=== PATIENT | male | born 1980 | race Caucasian/White ===

== ENCOUNTER 2017-04-11 08:21 | Emergency (ER) | payer OTHER ==
[2017-04-11 08:41] LABS: BASOPHIL COUNT 0.1 K/uL (0-0.1); EOSINOPHIL (%) 2.1 % (0-5); EOSINOPHIL COUNT 0.2 K/uL (0-0.3); HEMATOCRIT 51.6 % (38.0-50.0); IMMATURE GRANULOCYTE (%) 0.2 % (0.0-0.7); INSTRUMENT ABS NEUTROPHIL CT 6.2 K/uL; MCH 32.1 PG (29.0-34.0); MCHC 34.7 G/DL (30.0-36.0); MCV 92.6 FL (86-99); MONOCYTE (%) 8.8 % (3-12); NEUTROPHIL (%) 53.9 % (45-76); NEUTROPHIL COUNT 6.2 K/uL (1.8-6.4); PLATELET COUNT 310 K/uL (156-360); RBC DIS.WIDTH-SD 41.1 % (39-53); RED BLOOD COUNT 5.57 M/uL (4.00-5.50); WHITE BLOOD COUNT 11.5 K/uL (4.1-10.2)
[2017-04-11 08:52] LABS: AMYLASE 60 IU/L (1-118); CHLORIDE 102 mEq/L (99-109); POTASSIUM 3.8 mEq/L (3.7-5.4); SODIUM 142 mEq/L (136-147)
[2017-04-11 08:54] LABS: GLUCOSE 103 mg/dL (70-99)
[2017-04-11 08:55] LABS: ANION GAP 14 MEQ/L (2-14)
[2017-04-11 08:57] LABS: SERUM ETHYL ALCOHOL < 10 mg/dL
[2017-04-11 08:58] LABS: GFR ESTIMATE (CALCULATED) > 59 mL/min/
[2017-04-11 08:59] LABS: UREA NITROGEN (BUN) 10 mg/dL (9-23)
[2017-04-11 09:01] LABS: LIPASE 29 U/L (1.0-51.0)
[2017-04-11 09:44] LABS: ADD MIUA? YES; BILIRUBIN NEGATIVE; BLOOD MODERATE; COLOR YELLOW ((YELLOW)); GLUCOSE (STRIP) NEGATIVE; KETONES NEGATIVE; LEUKOCYTES NEGATIVE; NITRITE NEGATIVE; PROTEIN (STRIP) 30; SPECIFIC GRAVITY 1.032 (1.000-1.030)
[2017-04-11 09:46] LABS: BACTERIA NONE SEEN /HPF; EPITHELIAL CELLS NONE SEEN /HPF; MUCUS NONE SEEN /LPF; RED BLOOD CELLS TNTC /HPF (0-5); UCUL ADDED? YES; WHITE BLOOD CELLS 0-5 /HPF (0-5)
[2017-04-11 10:32] LABS: ADD MEDTOX COMMENT Y; AMPHETAMINE NEGATIVE (500 ng/mL); BARBITURATES NEGATIVE (200 ng/mL); BENZODIAZEPINES NEGATIVE (150 ng/mL); COCAINE NEGATIVE (150 ng/mL); INTERNAL CONTROLS VALID? YES; METHADONE NEGATIVE (200 ng/mL); METHAMPHETAMINE NEGATIVE (500 ng/mL); OPIATES (MORPHINE) NEGATIVE (100 ng/mL); OXYCODONE NEGATIVE (100 ng/mL); PHENCYCLIDINE NEGATIVE (25 ng/mL); PROPOXYPHENE NEGATIVE (300 ng/mL); THC CANNABINOIDS PRESUMPTIVE POSITIVE (50 ng/mL); TRICYCLIC ANTIDEPRESSANTS NEGATIVE (300 ng/mL)
[2017-04-11] MEDS ORDERED: TYLENOL WITH C1 EACH PO (10:53)
[2017-04-11] MEDS ORDERED: ZITHROMAX Z-PA250 MG PO (10:58)
== END 2017-04-11 12:01 | disposition home or self-care (01) ==
LOC: TRA 08:21
PROVIDERS: Emergency Medicine
PROC: 0HQ0XZZ Repair Scalp Skin, External Approach (ICD-10-PCS; principal; 2017-04-11)
DX: S01.01XA Laceration without foreign body of scalp, initial encounter (principal); J20.9 Acute bronchitis, unspecified; S30.1XXA Contusion of abdominal wall, initial encounter; M25.511 Pain in right shoulder; M25.512 Pain in left shoulder; M54.2 Cervicalgia; Z87.11 Personal history of peptic ulcer disease; V89.2XXA Person injured in unspecified motor-vehicle accident, traffic, initial encounter
CPT/HCPCS: 70450; 71260; 72125; 72129; 72132; 73030; 74177; 80048; 81003; 82150; 83690; 84999; 85025; 86850; 86900; 86901; 87077; 87086; 87186; 90832; 99281; 99285; G0480

== ENCOUNTER 2017-04-20 21:06 | Emergency (ER) | payer SELFPAY ==
[~2017-04-20] VITALS: Ht 170.2 cm; Wt 68.3 kg
[~2017-04-20 21:06] MED LIST: TYLENOL WITH C1 EACH PO; ZITHROMAX Z-PA250 MG PO
[2017-04-20] MEDS ORDERED: NAPROSYN500 MG PO (23:10)
[2017-04-20] MEDS ORDERED: FLEXERIL10 MG PO (23:10)
[2017-04-20 23:39] VITALS: BP 111/58
== END 2017-04-20 23:40 | disposition home or self-care (01) ==
LOC: EME 21:06 → EXP 21:06
DX: S43.402A Unspecified sprain of left shoulder joint, initial encounter (principal); V47.0XXD Car driver injured in collision with fixed or stationary object in nontraffic accident, subsequent encounter
CPT/HCPCS: 73030; 99281; 99284

== ENCOUNTER 2017-07-10 09:01 | Emergency (ER) | payer OTHER ==
[~2017-07-10] VITALS: Ht 170.2 cm; Wt 68.2 kg
[~2017-07-10 09:01] MED LIST changes: +FLEXERIL10 MG PO; +NAPROSYN500 MG PO
[2017-07-10 10:10] LABS: HEMATOCRIT 49.6 % (38.0-50.0); HEMOGLOBIN 17.6 G/DL (12.5-16.6); MCHC 35.5 G/DL (30.0-36.0); MCV 90.2 FL (86-99); PLATELET COUNT 262 K/uL (156-360); RBC DIS.WIDTH-CV 12.7 % (11.8-14.6); RBC DIS.WIDTH-SD 42.5 % (39-53); WHITE BLOOD COUNT 12.5 K/uL (4.1-10.2)
[2017-07-10 10:18] LABS: ALBUMIN 4.4 g/dL (3.2-4.8)
[2017-07-10 10:19] LABS: CHLORIDE 106 mEq/L (99-109); POTASSIUM 4.4 mEq/L (3.7-5.4); SODIUM 143 mEq/L (136-147)
[2017-07-10 10:21] LABS: GLUCOSE 95 mg/dL (70-99); TOTAL PROTEIN 7.3 g/dL (6.4-8.3)
[2017-07-10 10:23] LABS: TOTAL BILIRUBIN 0.4 mg/dL (0.0-1.0)
[2017-07-10] MEDS ORDERED: PROTONIX40 MG PO (10:23)
[2017-07-10 10:24] LABS: ALKALINE PHOSPHATASE 106 IU/L (3-129); CREATININE 0.8 mg/dL (0.6-1.3); GFR ESTIMATE (CALCULATED) > 59 mL/min/ (58.99-99999)
[2017-07-10 10:26] LABS: AST (GOT) 17 IU/L (2-34); UREA NITROGEN (BUN) 9 mg/dL (9-23)
[2017-07-10 10:27] LABS: ALT (GPT) 19 IU/L (3-49)
[2017-07-10 10:28] LABS: LIPASE 8 U/L (1.0-51.0)
[2017-07-10 12:08] LABS: APPEARANCE SL.HAZY ((CLEAR)); BILIRUBIN NEGATIVE; BLOOD NEGATIVE; COLOR YELLOW ((YELLOW)); GLUCOSE (STRIP) NEGATIVE; KETONES NEGATIVE; LEUKOCYTES NEGATIVE; NITRITE NEGATIVE; PROTEIN (STRIP) 30; SPECIFIC GRAVITY 1.016 (1.000-1.030); UROBILINOGEN 0.2 MG/DL (0.2-1.0)
[2017-07-10 12:12] LABS: BACTERIA NONE SEEN /HPF; CALCIUM OXALATE CRYSTALS 2+ /HPF; EPITHELIAL CELLS NONE SEEN /HPF; MUCUS TRACE /LPF; RED BLOOD CELLS 0-5 /HPF (0-5); UCUL ADDED? NO; WHITE BLOOD CELLS 0-5 /HPF (0-5)
[2017-07-10] MEDS ORDERED: ZOFRAN4 MG PO (12:31)
[2017-07-10] MEDS ORDERED: PEPCID20 MG PO (12:32)
[2017-07-10 12:45] VITALS: BP 131/66
== END 2017-07-10 12:42 | disposition home or self-care (01) ==
LOC: EME 09:01
PROVIDERS: Nurse Practitioner Family
DX: R11.2 Nausea with vomiting, unspecified (principal); R10.13 Epigastric pain; F17.200 Nicotine dependence, unspecified, uncomplicated; J45.909 Unspecified asthma, uncomplicated; Z87.19 Personal history of other diseases of the digestive system
CPT/HCPCS: 76705; 80053; 81003; 83690; 85027; 99281; 99285; J2405; J7030; S0028

== ENCOUNTER 2017-11-10 09:02 | Emergency (ER) | payer OTHER ==
[~2017-11-10] VITALS: Ht 170.2 cm; Wt 64.8 kg
[~2017-11-10 09:02] MED LIST changes: +PEPCID20 MG PO; +PROTONIX40 MG PO; +ZOFRAN4 MG PO
[2017-11-10 10:00] LABS: HEMATOCRIT 51.6 % (38.0-50.0); HEMOGLOBIN 18.7 G/DL (12.5-16.6); MCH 32.6 PG (29.0-34.0); MCHC 36.2 G/DL (30.0-36.0); MCV 90.1 FL (86-99); PLATELET COUNT 300 K/uL (156-360); RBC DIS.WIDTH-CV 12.1 % (11.8-14.6); RBC DIS.WIDTH-SD 40.1 % (39-53); RED BLOOD COUNT 5.73 M/uL (4.00-5.50); WHITE BLOOD COUNT 17.8 K/uL (4.1-10.2)
[2017-11-10 10:26] LABS: ALBUMIN 4.8 G/DL (3.2-4.8); ALKALINE PHOSPHATASE 90 IU/L (3-129); ALT (GPT) 19 IU/L (3-49); AST (GOT) 17 IU/L (2-34); CHLORIDE 99 MEQ/L (99-109); CREATININE 0.9 MG/DL (0.6-1.3); GFR ESTIMATE (CALCULATED) > 59 mL/min/ (58.99-99999); GLUCOSE 132 mg/dL (70-99); POTASSIUM 4.1 MEQ/L (3.7-5.4); SODIUM 140 MEQ/L (136-147); TOTAL BILIRUBIN 1.3 MG/DL (0.0-1.0); TOTAL PROTEIN 7.3 G/DL (6.4-8.3); UREA NITROGEN (BUN) 15 mg/dL (9-23)
[2017-11-10 10:49] LABS: LIPASE 7 U/L (1.0-51.0)
[2017-11-10 14:06] LABS: APPEARANCE TURBID ((CLEAR)); BILIRUBIN NEGATIVE; BLOOD NEGATIVE; COLOR AMBER ((YELLOW)); GLUCOSE (STRIP) NEGATIVE; KETONES 20; LEUKOCYTES NEGATIVE; NITRITE NEGATIVE; PROTEIN (STRIP) 100; SPECIFIC GRAVITY 1.027 (1.000-1.030)
[2017-11-10 14:19] LABS: BACTERIA NONE SEEN /HPF; EPITHELIAL CELLS NONE SEEN /HPF; MUCUS NONE SEEN /LPF; RED BLOOD CELLS 0-5 /HPF (0-5); UCUL ADDED? NO; WHITE BLOOD CELLS 0-5 /HPF (0-5)
[2017-11-10 14:20] LABS: AMORPHOUS URATES CRYSTALS 3+
[2017-11-10] MEDS ORDERED: REGLAN5 MG PO (15:56)
[2017-11-10 16:22] VITALS: BP 134/69
== END 2017-11-10 16:24 | disposition home or self-care (01) ==
LOC: EME 09:02
DX: R11.2 Nausea with vomiting, unspecified (principal); R10.13 Epigastric pain; Z91.19 Patient's noncompliance with other medical treatment and regimen; J45.909 Unspecified asthma, uncomplicated; F17.200 Nicotine dependence, unspecified, uncomplicated; Z87.19 Personal history of other diseases of the digestive system
CPT/HCPCS: 76705; 80053; 81003; 83690; 85027; 99281; 99285; J2405; J2765; J7030; Q0169

== ENCOUNTER 2017-11-12 09:48 | Emergency (ER) | payer OTHER ==
[~2017-11-12] VITALS: Ht 170.2 cm; Wt 64.4 kg
[~2017-11-12 09:48] MED LIST changes: +REGLAN5 MG PO
[2017-11-12 11:54] LABS: APPEARANCE TURBID ((CLEAR)); BILIRUBIN NEGATIVE; BLOOD NEGATIVE; COLOR AMBER ((YELLOW)); GLUCOSE (STRIP) NEGATIVE; KETONES 20; LEUKOCYTES NEGATIVE; NITRITE NEGATIVE; PROTEIN (STRIP) 100; SPECIFIC GRAVITY 1.019 (1.000-1.030)
[2017-11-12 12:00] LABS: ALBUMIN 4.5 g/dL (3.2-4.8); CHLORIDE 101 mEq/L (99-109); SODIUM 141 mEq/L (136-147)
[2017-11-12 12:02] LABS: GLUCOSE 113 mg/dL (70-99); TOTAL PROTEIN 7.4 g/dL (6.4-8.3)
[2017-11-12 12:04] LABS: TOTAL BILIRUBIN 1.8 mg/dL (0.0-1.0)
[2017-11-12 12:06] LABS: ALKALINE PHOSPHATASE 94 IU/L (3-129); CREATININE 0.9 mg/dL (0.6-1.3); GFR ESTIMATE (CALCULATED) > 59 mL/min/ (58.99-99999)
[2017-11-12 12:07] LABS: HEMATOCRIT 49.8 % (38.0-50.0); HEMOGLOBIN 18.1 G/DL (12.5-16.6); MCH 32.4 PG (29.0-34.0); MCHC 36.3 G/DL (30.0-36.0); MCV 89.1 FL (86-99); PLATELET COUNT 275 K/uL (156-360); RBC DIS.WIDTH-CV 11.7 % (11.8-14.6); RBC DIS.WIDTH-SD 38.4 % (39-53); RED BLOOD COUNT 5.59 M/uL (4.00-5.50); UREA NITROGEN (BUN) 10 mg/dL (9-23); WHITE BLOOD COUNT 14.1 K/uL (4.1-10.2)
[2017-11-12 12:08] LABS: AST (GOT) 20 IU/L (2-34)
[2017-11-12 12:09] LABS: ALT (GPT) 32 IU/L (3-49); LIPASE 7 U/L (1.0-51.0)
[2017-11-12 12:26] LABS: AMORPHOUS PHOSPHATE CRYSTALS 3+; BACTERIA NONE SEEN /HPF; EPITHELIAL CELLS NONE SEEN /HPF; MUCUS NONE SEEN /LPF; RED BLOOD CELLS NONE SEEN /HPF (0-5); UCUL ADDED? NO; WHITE BLOOD CELLS NONE SEEN /HPF (0-5)
[2017-11-12] MEDS ORDERED: ZOFRAN ODT8 MG PO (13:25)
[2017-11-12] MEDS ORDERED: CARAFATE1 GM PO (13:25)
[2017-11-12 13:36] VITALS: BP 129/74
== END 2017-11-12 13:39 | disposition home or self-care (01) ==
LOC: EME 09:48
DX: R11.2 Nausea with vomiting, unspecified (principal); R10.13 Epigastric pain; J45.909 Unspecified asthma, uncomplicated; F17.200 Nicotine dependence, unspecified, uncomplicated; Z87.19 Personal history of other diseases of the digestive system
CPT/HCPCS: 80053; 81003; 83690; 85027; 99281; 99285; J2405; J7030